=== PATIENT | female | born 1960 | race Caucasian/White ===

== ENCOUNTER 2017-11-06 09:58 | Emergency (ER) | payer OTHER ==
--- OUTSIDE RECORDS SUMMARY | 2017-11-06 10:00 | XMS REPORT | Clinical Summary ---
:1960 Author Organization [facility] Address [address] [place] [id number] Care Team Providers Name Role Phone Jluissa Geiger MD Primary Care Provider Allergies Not on File Current Medications Not on file Active Problems Not on file Social History Tobacco Use Types Packs/Day Years Used Date Never Assessed Sex Assigned at Date Recorded Not on file Last Filed Vital Signs Not on file Plan of Treatment Health Maintenance Due Date Last Done Comments PAP SMEAR 1980 COLONOSCOPY 2009 MAMMOGRAM 2009 INFLUENZA VACCINE 02/18/2018 Results Not on fileafter 11/05/2016 Insurance Payer Benefit Plan / Group Subscriber ID Type Phone Address FOR LIFE xxxxxxxxx Home: [address] [phone] [place], [place] [phone]
[2017-11-06] MEDS ORDERED: NA CHLORIDE 0.9% 1,000 ML ONE (12:45)
[2017-11-06] MEDS ORDERED: KETOROLAC 30 MG/ML INJ ONE (12:45)
[2017-11-06] MEDS ORDERED: FENTANYL CITR 100 MCG/2 ML ONE (12:45)
[2017-11-06] MEDS ORDERED: ONDANSETRON 4 MG/2 ML VIAL ONE (12:45)
[2017-11-06 13:19] LABS: Absolute Lymphocytes (CBC) 1.8 K/uL (0.7-4.9); Absolute Monocytes 0.8 K/uL (0.1-1.3); Basophils % 0.8 % (0-1.3); Eosinophils % 0.2 % (0-4.4); Hematocrit 41.9 % (36.0-45.0); Lymphocytes % 18.1 % (15.3-44.8); MCH 31.2 pg (27.0-35.0); MPV 9.6 fL (7.6-11.3); Monocytes % 8.7 % (3.3-12.3)
--- NOTE | 2017-11-06 13:22 | RAD REPORT ---
EXAM DESCRIPTION: CT - Head Brain Wo Cont - 11/06/2017 1:16 pm CLINICAL HISTORY: Headaches x1 week. COMPARISON: 10/14/2014 TECHNIQUE: All CT scans are performed using dose optimization technique as appropriate and may inclu de automated exposure control or mA/KV adjustment according to patient size. FINDINGS: No intracranial hemorrhage, hydrocephalus or extra-axial fluid collection.No areas of brai n edema or evidence of midline shift. The paranasal sinuses and mastoids are clear. The calvarium is intact. IMPRESSION: No acute intracranial abnormality.
--- NOTE | 2017-11-06 13:27 | EDPHYS ---
Physician Documentation [facility] Name: Tatyana Olguin Age: 57 yrs Sex: Female : 1960 Arrival Date: 11/06/2017 Time: 10:01 Bed 15 Private MD: Sesar Gibson ED Physician Marek Dickson HPI: 11/06 12:32 This 57 yrs old Female presents to ER via Ambulatory with complaints of raymond MIGRAINE, Nausea. 12:32 The patient presents to the emergency department with nausea, vomiting. Onset: The raymond symptoms/episode began/occurred 3 day(s) ago. Possible causes: unknown. The symptoms are aggravated by nothing. The symptoms are alleviated by nothing. Associated signs and symptoms: The patient has no apparent associated signs or symptoms. Severity of symptoms: At their worst the symptoms were mild in the emergency department the symptoms are unchanged. The patient has experienced similar episodes in the past, multiple times. Historical: - Allergies: 10:39 Iodine; aj 10:39 Sulfa (Sulfonamide Antibiotics); aj 10:39 Compazine; aj - Home Meds: 10:39 Xarelto oral oral [Active]; imbrel [Active]; levothyroxine oral [Active]; Fiorinal oral aj oral [Active]; Tylenol #3 Oral [Active]; Butrans transdermal transdermal [Active]; - PMHx: 10:39 Chronic pain; DVT; Hypertension; Hypothyroidism; Rheumatoid Arthritis; Migraines; aj - PSHx: 10:39 Appendectomy; Hysterectomy; Tonsillectomy; R corneal transplant; breast reduction; aj Cholecystectomy; R knee sx to clean on infection; - Immunization history:: Adult Immunizations up to date. - Social history:: Smoking status: Patient/guardian denies using tobacco. - Family history:: not pertinent. ROS: 12:32 Constitutional: Negative for fever, chills, and weight loss, Eyes: Negative for injury, raymond pain, redness, and discharge, ENT: Negative for injury, pain, and discharge, Neck: Negative for injury, pain, and swelling, Cardiovascular: Negative for chest pain, palpitations, and edema, Respiratory: Negative for shortness of breath, cough, wheezing, and pleuritic chest pain, Abdomen/GI: Negative for abdominal pain, nausea, vomiting, diarrhea, and constipation, Back: Negative for injury and pain, : Negative for injury, bleeding, discharge, and swelling, MS/Extremity: Negative for injury and deformity, Skin: Negative for injury, rash, and discoloration, Psych: Negative for depression, anxiety, suicide ideation, homicidal ideation, and hallucinations, Allergy/Immunology: Negative for hives, rash, and allergies, Endocrine: Negative for neck swelling, polydipsia, polyuria, polyphagia, and marked weight changes, Hematologic/Lymphatic: Negative for swollen nodes, abnormal bleeding, and unusual bruising. 12:32 Neuro: Positive for headache. Exam: 12:32 Constitutional: This is a well developed, well nourished patient who is awake, alert, raymond and in no acute distress. Head/Face: Normocephalic, atraumatic. Eyes: Pupils equal round and reactive to light, extra-ocular motions intact. Lids and lashes normal. Conjunctiva and sclera are non-icteric and not injected. Cornea within normal limits. Periorbital areas with no swelling, redness, or edema. ENT: Nares patent. No nasal discharge, no septal abnormalities noted. Tympanic membranes are normal and external auditory canals are clear. Oropharynx with no redness, swelling, or masses, exudates, or evidence of obstruction, uvula midline. Mucous membranes moist. Neck: Trachea midline, no thyromegaly or masses palpated, and no cervical lymphadenopathy. Supple, full range of motion without nuchal rigidity, or vertebral point tenderness. No Meningismus. Chest/axilla: Normal chest wall appearance and motion. Nontender with no deformity. No lesions are appreciated. Cardiovascular: Regular rate and rhythm with a normal S1 and S2. No gallops, murmurs, or rubs. Normal PMI, no JVD. No pulse deficits. Respiratory: Lungs have equal breath sounds bilaterally, clear to auscultation and percussion. No rales, rhonchi or wheezes noted. No increased work of breathing, no retractions or nasal flaring. Abdomen/GI: Soft, non-tender, with normal bowel sounds. No distension or tympany. No guarding or rebound. No evidence of tenderness throughout. Back: No spinal tenderness. No costovertebral tenderness. Full range of motion. Skin: Warm, dry with normal turgor. Normal color with no rashes, no lesions, and no evidence of cellulitis. MS/ Extremity: Pulses equal, no cyanosis. Neurovascular intact. Full, normal range of motion. Neuro: Awake and alert, GCS 15, oriented to person, place, time, and situation. Cranial nerves II-XII grossly intact. Motor strength 5/5 in all extremities. Sensory grossly intact. Cerebellar exam normal. Normal gait. Psych: Awake, alert, with orientation to person, place and time. Behavior, mood, and affect are within normal limits. Vital Signs: 10:39 BP 136 / 98; Pulse 110; Resp 19; Temp 98.4; Pulse Ox 99% on R/A; aj 12:25 BP 131 / 93; Pulse 83; Resp 16 S; Pulse Ox 98% on R/A; jl7 13:30 BP 126 / 73; Pulse 75; Resp 16 S; Pulse Ox 96% on R/A; jl7 14:30 BP 128 / 75; Pulse 80; Resp 16; Pulse Ox 98% on R/A; jl7 MDM: 12:23 Patient medically screened. [facility] 12:35 Data reviewed: vital signs, nurses notes, lab test result(s), EKG, radiologic studies, [facility] CT scan. 11/06 12:32 Order name: CBC with Diff; Complete Time: 14:01 [facility] 11/06 12:32 Order name: Comprehensive Metabolic Panel; Complete Time: 14:01 [facility] 11/06 12:32 Order name: CT Head Brain wo Cont; Complete Time: 13:25 [facility] 11/06 12:32 Order name: Urine Culture [facility] 11/06 13:58 Order name: Urine Dipstick--Ancillary (enter results) [facility] 11/06 12:32 Order name: Urine Dipstick-Ancillary (obtain specimen); Complete Time: 13:58 [facility] Administered Medications: 13:00 Drug: NS 0.9% 1000 ml Route: IV; Rate: 1 bolus; Site: left antecubital; jl7 14:00 Follow up: IV Status: Completed infusion 7 13:00 Drug: Zofran 4 mg Route: IVP; Site: left antecubital; jl7 13:47 Follow up: Response: No adverse reaction; Nausea is decreased jl7 13:02 Drug: TORadol 30 mg Route: IVP; Site: left antecubital; jl7 13:47 Follow up: Response: No adverse reaction; Pain is decreased jl7 13:04 Drug: fentaNYL (PF) 25 mcg Route: IVP; Site: left antecubital; 7 13:48 Follow up: Response: No adverse reaction; Pain is decreased 13:59 Drug: Rocephin 1 grams Route: IV; Rate: calculated rate; Site: left antecubital; 7 14:01 Follow up: Response: No adverse reaction; IV Status: Completed infusion 14:06 Drug: Potassium Chloride 20 mEq Route: PO; 14:45 Follow up: Response: No adverse reaction 14:23 Drug: Benadryl 50 mg Route: PO; 14:45 Follow up: Response: No adverse reaction 14:24 Drug: Zofran 4 mg Route: PO; 14:45 Follow up: Response: Nausea is decreased Disposition: 11/06/17 13:27 Discharged to Home. Impression: Migraine, Vomiting, Urinary tract infection, site not specified. - Condition is Stable. - Discharge Instructions: Allergies, Migraine Headache, Nausea and Vomiting, Urinary Tract Infection, Nausea and Vomiting, [id number], Urinary Tract Infection, [id number]-zk-[id number], Allergies, Ojqb-[id number]. - Prescriptions for Fioricet with Codeine 50- 325-40-30 mg Oral capsule - take 1 capsule by ORAL route every 4 hours as needed not to exceed 6 capsules per 24hrs; 24 capsule. Zofran 4 mg Oral Tablet - take 1 tablet by ORAL route every 12 hours As needed; 20 tablet. Cipro 250 mg Oral Tablet - take 1 tablet by ORAL route every 12 hours; 14 tablet. Benadryl 25 mg Oral Capsule - take 1 capsule by ORAL route every 6 hours As needed; 30 tablet. - Medication Reconciliation Form, Thank You Letter, Antibiotic Education, Prescription Opioid Use form. - Follow up: Sesar Gibson; When: 2 - 3 days; Reason: Recheck today's complaints, Continuance of care, Re-evaluation by your physician. Follow up: Jose Alberto Kaiser; When: 2 - 3 days; Reason: Recheck today's complaints, Re-evaluation by your physician. - Problem is new. - Symptoms have improved. Signatures: Dispatcher [employer] EDMS Duong, Kika, RN RN aj Randolph, Marek, MD MD raymond Steinberg, Jahala, RN RN jl7
--- NOTE | 2017-11-06 13:27 | ER ---
Nurse's Notes [facility] Name: Tatyana Olguin Age: 57 yrs Sex: Female : 1960 Arrival Date: 11/06/2017 Time: 10:01 Bed 15 Private MD: Sesar Gibson Diagnosis: Migraine;Vomiting;Urinary tract infection, site not specified Presentation: 11/06 10:35 Presenting complaint: Patient states: Headaches off and on for 1 week. Took Imitrex aj this AM and began vomiting 15 min after. Patient reports HX of migraines. Transition of care: patient was not received from another setting of care. Onset of symptoms was October 30, 2017. Initial Sepsis Screen: Does the patient meet any 2 criteria? HR > 90 bpm. No. Patient's initial sepsis screen is negative. Does the patient have a suspected source of infection? No. Patient's initial sepsis screen is negative. Care prior to arrival: None. 10:35 Method Of Arrival: Ambulatory aj 10:35 Acuity: RALF 3 aj Triage Assessment: 10:39 General: Appears in no apparent distress. comfortable, Behavior is calm, cooperative, aj appropriate for age. Pain: Complains of pain in face and scalp Pain currently is 10 out of 10 on a pain scale. Neuro: Level of Consciousness is awake, alert, obeys commands, Oriented to person, place, time, situation, Appropriate for age [employer] Consult[employer] are equal bilaterally Moves all extremities. Full function Gait is steady, Speech is normal, Facial symmetry appears normal, Pupils are PERRLA, Reports headache. Respiratory: Airway is patent Respiratory effort is even, unlabored, Respiratory pattern is regular, symmetrical. GI: Reports nausea, vomiting. Derm: Skin is intact, is healthy with good turgor, Skin is pink, warm \\T\\ dry. normal. Historical: - Allergies: 10:39 Iodine; aj 10:39 Sulfa (Sulfonamide Antibiotics); aj 10:39 Compazine; aj - Home Meds: 10:39 Xarelto oral oral [Active]; imbrel [Active]; levothyroxine oral [Active]; Fiorinal oral aj oral [Active]; Tylenol #3 Oral [Active]; Butrans transdermal transdermal [Active]; - PMHx: 10:39 Chronic pain; DVT; Hypertension; Hypothyroidism; Rheumatoid Arthritis; Migraines; aj - PSHx: 10:39 Appendectomy; Hysterectomy; Tonsillectomy; R corneal transplant; breast reduction; aj Cholecystectomy; R knee sx to clean on infection; - Immunization history:: Adult Immunizations up to date. - Social history:: Smoking status: Patient/guardian denies using tobacco. - Family history:: not pertinent. Screenin:25 Abuse screen: Denies threats or abuse. Denies injuries from another. Nutritional jl7 screening: No deficits noted. Tuberculosis screening: No symptoms or risk factors identified. Fall Risk None identified. Assessment: 12:25 General: Appears in no apparent distress. uncomfortable, Behavior is cooperative, "My jl7 migraine started this morning, Fiorinal didn't help it. I chewed up some Nauzene pills. My niece is a nurse here and she told me to get some Emetrol . I got it at [facility] and took it then not long after started throwing up.". Pain: Complains of pain in headache Pain currently is 10 out of 10 on a pain scale. Quality of pain is described as throbbing, Pain began 4 hours ago. Is continuous. Neuro: Level of Consciousness is awake, alert, obeys commands, Oriented to person, place, time, situation, Speech is normal, Facial symmetry appears normal, Pupils are PERRLA. Cardiovascular: Patient's skin is warm and dry. Respiratory: Airway is patent Respiratory effort is even, unlabored, Respiratory pattern is regular, symmetrical. GI: Abdomen is flat, non-distended, Bowel sounds present X 4 quads. Reports nausea, vomiting, since this morning. : No signs and/or symptoms were reported regarding the genitourinary system. EENT: No signs and/or symptoms were reported regarding the EENT system. Derm: Skin is pink, warm \\T\\ dry. Musculoskeletal: No signs and/or symptoms reported regarding the musculoskeletal system. 14:15 Reassessment: Just prior to pt being discharged a blister appeared on her left eye lid. jl7 Dr. Dickson came to bedside and assessed, see MAR for orders. 14:25 Reassessment: Pt states "It feels like a blister is trying to come up on the left side jl7 of my upper lip." Small area on upper lip appears red. Pt instructed to stay in the room at this time to allow the medications to work. Pt denies dyspnea at this time. 14:55 Reassessment: Patient states feeling better. Patient states symptoms have improved. jl7 Vital Signs: 10:39 BP 136 / 98; Pulse 110; Resp 19; Temp 98.4; Pulse Ox 99% on R/A; aj 12:25 BP 131 / 93; Pulse 83; Resp 16 S; Pulse Ox 98% on R/A; jl7 13:30 BP 126 / 73; Pulse 75; Resp 16 S; Pulse Ox 96% on R/A; jl7 14:30 BP 128 / 75; Pulse 80; Resp 16; Pulse Ox 98% on R/A; jl7 ED Course: 10:01 Patient arrived in ED. rg4 10:01 Sesar Gibson MD is Private Physician. rg4 10:36 Triage completed. aj 10:39 Arm band placed on left wrist. Patient placed in waiting room, Patient notified of wait aj time. 12:18 Yokasta Steinberg RN is Primary Nurse. jl7 12:23 Marek Dickson MD is Attending Physician. raymond 12:25 Patient has correct armband on for positive identification. Bed in low position. Call jl7 light in reach. Side rails up X 1. Pulse ox on. NIBP on. Warm blanket given. 13:00 No provider procedures requiring assistance completed. Initial lab(s) drawn, by sade beavers sent to lab. Inserted saline lock: 20 gauge in left antecubital area, using aseptic technique. Blood collected. 13:16 CT completed. Patient tolerated procedure well. Patient moved to CT via stretcher. sj Patient moved back from CT. 13:16 CT Head Brain wo Cont In Process Unspecified. EDMS 13:27 Sesar Gibson MD is Referral Physician. raymond 13:27 Jose Alberto Kaiser MD is Referral Physician. raymond 14:57 IV discontinued, intact, bleeding controlled, No redness/swelling at site. Pressure jl7 dressing applied. Administered Medications: 13:00 Drug: NS 0.9% 1000 ml Route: IV; Rate: 1 bolus; Site: left antecubital; jl7 14:00 Follow up: IV Status: Completed infusion jl7 13:00 Drug: Zofran 4 mg Route: IVP; Site: left antecubital; jl7 13:47 Follow up: Response: No adverse reaction; Nausea is decreased jl7 13:02 Drug: TORadol 30 mg Route: IVP; Site: left antecubital; jl7 13:47 Follow up: Response: No adverse reaction; Pain is decreased jl7 13:04 Drug: fentaNYL (PF) 25 mcg Route: IVP; Site: left antecubital; jl7 13:48 Follow up: Response: No adverse reaction; Pain is decreased jl7 13:59 Drug: Rocephin 1 grams Route: IV; Rate: calculated rate; Site: left antecubital; jl7 14:01 Follow up: Response: No adverse reaction; IV Status: Completed infusion jl7 14:06 Drug: Potassium Chloride 20 mEq Route: PO; jl7 14:45 Follow up: Response: No adverse reaction jl7 14:23 Drug: Benadryl 50 mg Route: PO; jl7 14:45 Follow up: Response: No adverse reaction jl7 14:24 Drug: Zofran 4 mg Route: PO; jl7 14:45 Follow up: Response: Nausea is decreased jl7 Outcome: 13:27 Discharge ordered by MD. andrade 14:55 Discharged to home ambulatory, with family. jl7 14:55 Condition: stable 14:55 Discharge instructions given to patient, family, Instructed on discharge instructions, follow up and referral plans. medication usage, Demonstrated understanding of instructions, follow-up care, medications, Prescriptions given X 4. 14:59 Patient left the ED. jl7 Signatures: Dispatcher [employer] Kika Gibbs, Marek Kyle RN, MD MD cha Jones, Susan sj Garcia, Rubi rg4 Yokasta Steinberg RN RN jl7
[2017-11-06 13:40] LABS: Bilirubin Total 0.5 mg/dL (0.3-1.2); Protein, Total 6.9 g/dL (6.0-8.3)
[2017-11-06 13:48] LABS: Potassium 3.4 mEq/L (3.6-5.0)
[2017-11-06] MEDS ORDERED: CEFTRIAXONE/SWI 1gm 1 GM/10 ML SYR ONE (13:55)
[2017-11-06] MEDS ORDERED: POTASSIUM CL SA 10 MEQ TAB PO ONE (14:05)
[2017-11-06] MEDS ORDERED: DIPHENHYDRAMINE 25 MG TAB/CAP ONE (14:14)
[2017-11-06] MEDS ORDERED: ONDANSETRON 4 MG (ODT) TAB ONE (14:14)
[2017-11-06 14:24] LABS: Urine Blood NEGATIVE (NEG); Urine Glucose NEGATIVE (NEG); Urine Protein NEGATIVE (NEG); Urine Specific Gravity 1.015 (1.005-1.030)
[2017-11-06 15:04] VITALS: TEMP 98.4
[2017-11-06 15:07] VITALS: BP 128/75; O2SAT 98
== END 2017-11-06 14:59 | disposition home or self-care (01) ==
LOC: ER 09:58
DX: G43.909 Migraine, unspecified, not intractable, without status migrainosus (principal); N39.0 Urinary tract infection, site not specified; I10 Essential (primary) hypertension; E03.9 Hypothyroidism, unspecified; Z88.1 Allergy status to other antibiotic agents; Z88.2 Allergy status to sulfonamides; Z91.048 Other nonmedicinal substance allergy status; Z86.718 Personal history of other venous thrombosis and embolism; Z79.01 Long term (current) use of anticoagulants
CPT/HCPCS: 36415; 70450; 80053; 81003; 85025; 87086; 87088; 96361; 96374; 96375; 99284; J0696; J2405; J3010; J7030